=== PATIENT | female | born 1985 | race Caucasian/White ===

== ENCOUNTER 2023-05-29 13:36 | Emergency (ER) | payer OTHER ==
[~2023-05-29] VITALS: Ht 154.9 cm; Wt 63.0 kg
[2023-05-29] MEDS ORDERED: ibuprofen tablet 400 MG TABLET PO ONE (14:25)
== END 2023-05-29 15:27 | disposition home or self-care (01) ==
LOC: ER 13:36
DX: S50.312A Abrasion of left elbow, initial encounter (principal); S70.02XA Contusion of left hip, initial encounter; V98.8XXA Other specified transport accidents, initial encounter; Y93.89 Activity, other specified; Y92.89 Other specified places as the place of occurrence of the external cause; Y99.8 Other external cause status
CPT/HCPCS: 73080; 73502; 99284; A6449

== ENCOUNTER 2023-12-18 11:01 | Outpatient (CLI) | payer BC | END 2023-12-18 23:59 | disposition home or self-care (01) | LOC: CARD DIAG 11:01 | PROVIDERS: ATTEND Family Medicine | DX: I34.81 Nonrheumatic mitral (valve) annulus calcification (principal); Q25.0 Patent ductus arteriosus | CPT/HCPCS: 93306 ==

== ENCOUNTER → 2024-06-10 | Outpatient (CLI) | payer BC | END | disposition home or self-care (01) | LOC: RAD 11:28 | PROVIDERS: ATTEND Family Medicine | DX: D25.9 Leiomyoma of uterus, unspecified (principal); Z87.42 Personal history of other diseases of the female genital tract | CPT/HCPCS: 76830; 76856; 93976 ==

== ENCOUNTER 2024-06-23 08:41 | Outpatient (CLI) | payer BC ==
[2024-06-23 09:11] LABS: BASOPHILS % (AUTO) 0.4 % (0-1); EOSINOPHILS # (AUTO) 0.1 X10'3 (0-0.9); HEMATOCRIT 40.1 % (35.0-45.0); HEMOGLOBIN 13.1 g/dl (12.0-16.0); LYMPHOCYTES # (AUTO) 1.7 X10'3 (1.1-4.8); LYMPHOCYTES % (AUTO) 28.6 % (21-51); MEAN CORPUSCULAR HEMOGLOBIN 29.5 PG (27.0-31.0); MEAN CORPUSCULAR HGB CONC 32.6 g/dL (33.0-36.5); MEAN CORPUSCULAR VOLUME 90.3 FL (78-98); MEAN PLATELET VOLUME 10.7 FL (7.4-10.4); MONOCYTES # (AUTO) 0.4 X10'3 (0-0.9); MONOCYTES % (AUTO) 6.2 % (2-12); NEUTROPHILS # (AUTO) 3.7 X10'3 (1.8-7.7); NEUTROPHILS % (AUTO) 63.8 % (42-75); PLATELET COUNT 188 X10'3 (140-440); RED BLOOD COUNT 4.44 X10'6 (4.20-5.60); RED CELL DISTRIBUTION WIDTH 13.9 % (11.5-14.5); WHITE BLOOD COUNT 5.8 X10'3 (4.5-11.0)
[2024-06-23 09:29] LABS: ALANINE AMINOTRANSFERASE 16 U/L (12-78); ALBUMIN 3.7 G/DL (3.4-5.0); ALKALINE PHOSPHATASE 41 IU/L (46-116); ANION GAP 6 (8-16); ASPARTATE AMINO TRANSFERASE 13 U/L (10-37); BILIRUBIN,TOTAL 0.5 MG/DL (0.1-1.0); BLOOD UREA NITROGEN 9 MG/DL (7-18); BUN/CREATININE RATIO 16.7 (10.0-20.0); CALCIUM 8.8 MG/DL (8.5-10.1); CHLORIDE 103 MMOL/L (99-107); CHOL/HDL RATIO 3.7 (0.00-4.99); CHOLESTEROL 172 MG/DL (0-200); CREATININE 0.54 MG/DL (0.40-0.90); GLUCOSE 98 MG/DL (70-104); HDL CHOLESTEROL 46 MG/DL (35-60); LDL CHOLESTEROL 112 MG/DL (50-100); POTASSIUM 3.9 MMOL/L (3.5-5.1); SODIUM 136 MMOL/L (135-145); THYROID STIMULATING HORMONE 1.92 ulU/ml (0.34-4.50); TOTAL CARBON DIOXIDE 27.4 MMOL/L (24-32); TOTAL PROTEIN 7.5 G/DL (6.4-8.2); TRIGLYCERIDES 66 MG/DL (20-135); eGFR > 90 ML/MIN
== END 2024-06-23 23:59 | disposition home or self-care (01) ==
LOC: LAB 08:41
PROVIDERS: ATTEND Family Medicine
DX: Z00.01 Encounter for general adult medical examination with abnormal findings (principal); Q25.0 Patent ductus arteriosus
CPT/HCPCS: 80053; 80061; 84436; 84443; 85025